=== PATIENT | male | born 1995 | race Caucasian/White ===

== ENCOUNTER 2020-11-18 09:03 | Emergency (ER) | payer OTHER ==
[~2020-11-18] VITALS: Ht 175.3 cm; Wt 104.5 kg
[2020-11-18] MEDS ORDERED: KETOROLAC TROMETHAMINE 60 MG/2 ML VIAL IM ONE (11:15)
[2020-11-18 13:01] VITALS: BP 126/75
== END 2020-11-18 13:02 | disposition home or self-care (01) ==
LOC: EMS 09:09
DX: S22.079A Unspecified fracture of T9-T10 vertebra, initial encounter for closed fracture (principal); M54.5 Low back pain; F17.210 Nicotine dependence, cigarettes, uncomplicated; F12.90 Cannabis use, unspecified, uncomplicated; X50.1XXA Overexertion from prolonged static or awkward postures, initial encounter; Y93.89 Activity, other specified; Y92.89 Other specified places as the place of occurrence of the external cause; Y99.8 Other external cause status
CPT/HCPCS: 72070; 72100; 96372; 99284; J1885